=== PATIENT | male | born 1955 ===

== ENCOUNTER 2019-05-11 12:52 | Emergency (ER) | payer MEDICAID ==
[2019-05-11 13:06] VITALS: BP 146/79
[2019-05-11 14:02] LABS: ANION GAP 19.5; CHLORIDE,CL 95 mmol/L (101-111); SODIUM,NA 136 mmol/L (135-145)
[2019-05-11] MEDS ORDERED: Loratadine 10 MG Tab PO ONE (14:14)
[2019-05-11] MEDS ORDERED: Atropine/Diphenoxylate 0.025-2.5 MG Tab PO ONE (14:14)
--- NOTE | 2019-05-11 14:27 | EDM.PDOC ---
Scribed by Marlena Velazquez 05/11/19 9918 for Jermaine Gamez MD ED HPI GENERAL MEDICAL PROBLEM - General Chief Complaint: Respiratory Problem Stated Complaint: COLD,RUNNY NOSE Time Seen by Provider: 05/11/19 13:15 Source of Information: Reports: Patient, Old Records, RN, RN Notes Reviewed History Limitations: Reports: No Limitations - History of Present Illness INITIAL COMMENTS - FREE TEXT/NARRATIVE: Patient presents to ER with cough, sore throat, itching ears, fevers, and diarrhea that has gone on for 3 weeks. Patient states he has had generalized body aches for the past 2 or 3 days. He has been to clinic in [place] and has completed 10 days of Amoxicillin, and then 10 days of Doxycycline, but did not improve. He thinks the antibiotics only caused diarrhea. He denies chest pain, shortness of breath, increasing wt or edema. He states that he has not missed any dialysis. Onset: Gradual Duration: Week(s): (3), Getting Worse Location: Reports: Chest, Generalized Quality: Reports: Pressure (in sinuses), Other (denies pain) Severity: Moderate Improves with: Reports: None Worsens with: Reports: None Associated Symptoms: Reports: No Other Symptoms Treatments SURFACER: Reports: Acetaminophen, Other Medication(s) Other Treatments SURFACER: tylenol 500 mg po at 0900. Generalized Pain Score (Numeric/FACES): 7 - Related Data Allergies Allergy/AdvReac Type Severity Reaction Status Date / Time Penicillins AdvReac Rash Verified 09/05/18 20:48 Home Meds: Home Meds Acetaminophen 325 mg PO Q6H PRN 09/05/18 [History] Apixaban [Eliquis] 2.5 mg PO DAILY 09/05/18 [History] Aspirin [Halfprin] 81 mg PO DAILY 09/05/18 [History] Darbepoetin Chava [Aranesp] 25 mcg IJ WEEKLY 09/05/18 [History] Ethacrynic Acid 75 mg PO BID 09/05/18 [History] Insulin Lispro [Humalog] 45 unit SQ BID 09/05/18 [History] Insulin Lispro [Humalog] See Protocol SQ DAILY 09/05/18 [History] Isosorbide Mononitrate [Imdur] 60 mg PO DAILY 09/05/18 [History] Metoprolol Succinate [Toprol Xl] 200 mg PO BID 09/05/18 [History] Pregabalin [Lyrica] 75 mg PO BID 09/05/18 [History] amLODIPine [Norvasc] 10 mg PO DAILY 09/05/18 [History] atorvaSTATin [Lipitor] 20 mg PO BEDTIME 09/05/18 [History] hydrALAZINE [Apresoline] 20 mg PO TID 09/05/18 [History] Past Medical History - Past Health History Medical/Surgical History: Denies Medical/Surgical History HEENT History: Reports: Impaired Vision Cardiovascular History: Reports: None, High Cholesterol, Hypertension Respiratory History: Reports: Asthma Gastrointestinal History: Reports: None Other Gastrointestinal History: feeling gassy, like he has to belch and can't Genitourinary History: Reports: Dialysis, Other (See Below) (ESRD) Musculoskeletal History: Reports: None Neurological History: Reports: Neuropathy, Diabetic Psychiatric History: Reports: None Endocrine/Metabolic History: Reports: Diabetes, Type II Immunologic History: Reports: None Oncologic (Cancer) History: Reports: None Dermatologic History: Reports: None - Infectious Disease History Infectious Disease History: Reports: None - Past Surgical History Head Surgeries/Procedures: Reports: None HEENT Surgical History: Reports: None Respiratory Surgical History: Reports: None Social & Family History - Family History Family Medical History: Noncontributory - Tobacco Use Smoking Status *Q: Never Smoker Second Hand Smoke Exposure: No - Caffeine Use Caffeine Use: Reports: Coffee - Recreational Drug Use Recreational Drug Use: No - Living Situation & Occupation Living situation: Reports: with Family Occupation: Disabled ED ROS GENERAL - Review of Systems Review Of Systems: Comprehensive ROS is negative, except as noted in HPI. ED EXAM, GENERAL - Physical Exam Exam: See Below Exam Limited By: No Limitations General Appearance: Alert, No Apparent Distress, Other (Chronically ill appearing) Eye Exam: Bilateral Eye: Normal Inspection Ears: Normal External Exam, Normal Canal, Hearing Grossly Normal, Normal TMs Nose: No Blood, Nasal Drainage (Mild congestion with small amt. of clear nasal drainage) Throat/Mouth: Normal Inspection, Normal Lips, Normal Oropharynx, Normal Voice, No Airway Compromise Head: Atraumatic, Normocephalic Neck: Normal Inspection, Supple, Non-Tender, Full Range of Motion. No: Lymphadenopathy (L), Lymphadenopathy (R) Respiratory/Chest: No Respiratory Distress, No Accessory Muscle Use, Chest Non- Tender, Decreased Breath Sounds, Crackles, Wheezing (mild faint wheezes). No: Rales, Rhonchi, Stridor Cardiovascular: Regular Rate, Rhythm, No Edema GI/Abdominal: Normal Bowel Sounds, Soft, Non-Tender, No Distention, No Abnormal Bruit. No: Guarding, Rigid, Rebound Back Exam: Normal Inspection Extremities: Normal Inspection, Normal Range of Motion, Non-Tender, Normal Capillary Refill, No Pedal Edema Neurological: Alert, Oriented, No Motor/Sensory Deficits Psychiatric: Normal Mood Skin Exam: Warm, Dry, Intact, Normal Color, No Rash Course - Vital Signs Last Recorded V/S: Last Vital Signs Temp 97 F 05/11/19 13:02 Pulse Resp 18 05/11/19 13:02 BP 146/79 H 05/11/19 13:02 Pulse Ox 100 05/11/19 13:02 - Orders/Labs/Meds Orders: Active Orders 24 hr Category Date Time Status Chest 2V [CR] Stat Exams 05/11/19 13:28 Taken CULTURE STREP A CONFIRMATION [RM] Stat Lab 05/11/19 13:12 Results STREP SCRN A RAPID W CULT CONF [RM] Stat Lab 05/11/19 13:12 Results Labs: Laboratory Tests 05/11/19 05/11/19 Range/Units 13:38 13:38 WBC 14.1 H (5.0-10.0) 10^3/uL RBC 4.10 L (4.6-6.2) 10^6/uL Hgb 12.0 L (14.0-18.0) g/dL Hct 36.6 L (40.0-54.0) % MCV 89.3 D (80-100) fL MCH 29.3 (27.0-34.0) pg MCHC 32.8 L (33.0-35.0) g/dL Plt Count 169 D (150-450) 10^3/uL Neut % (Auto) 80.4 H (42.2-75.2) % Lymph % (Auto) 6.5 L (20.5-50.1) % [place] % (Auto) 8.1 H (2-8) % Eos % (Auto) 4.6 H (1.0-3.0) % Baso % (Auto) 0.4 (0.0-1.0) % Sodium 136 (135-145) mmol/L Potassium 3.5 L (3.6-5.0) mmol/L Chloride 95 L (101-111) mmol/L Carbon Dioxide 25.0 (21.0-31.0) mmol/L Anion Gap 19.5 BUN 41 H (7-18) mg/dL Creatinine 6.7 H D (0.6-1.3) mg/dL Est Cr Clr Drug Dosing 11.06 mL/min Estimated GFR (MDRD) 8 Glucose 130 H (74-105) mg/dL Calcium 9.0 (8.4-10.2) mg/dl B-Natriuretic Peptide > 5000 H (0-100) pg/ml Rapid strep: Negative. Influenza A and B: Negative. Meds: Medications Discontinued Medications Generic Name Dose Route Start Last Admin Trade Name Freq PRN Reason Stop Dose Admin Diphenoxylate HCl/Atropine 2 tab 05/11/19 14:14 Lomotil 0.025-2.5 Mg PO 05/11/19 14:15 ONETIME ONE Loratadine 10 mg 05/11/19 14:14 Claritin PO 05/11/19 14:15 ONETIME ONE - Radiology Interpretation Free Text/Narrative:: [facility] Final Radiology Report Call: [phone] assistance Online chat: [email or web address] Name: LEESA LAURENT Age: 63Years M Date: 05/11/2019 SSN: -- : [id number] Study: XR CHEST 2 VIEWS FRONTAL & LAT Requesting Physician: JERMAINE GAMEZ Images: 2 Addl Studies: Provided Clinical History: Contrast: Contrast Medium: Contrast Amount: Contrast Method: CONFIDENTIALITY STATEMENT This report is intended only for use by the referring physician, and only in accordance with law. If you received this in error, call [phone]. Page 1 of 1 PROCEDURE INFORMATION: Exam: XR Chest, 2 Views Exam date and time: 05/11/2019 1:33 PM Age: 63 years old Clinical indication: Cough TECHNIQUE: Imaging protocol: XR of the chest Views: 2 views. COMPARISON: CR Chest 2V 09/23/2013 7:38 PM FINDINGS: Lungs: The lungs appear clear. No pneumonia is identified. Pleural space: There is blunting of the left costophrenic angle, probably chronic. The right costophrenic angle is sharp. There is no pneumothorax. Heart/Mediastinum: The cardiac silhouette is enlarged but stable. The mediastinal and hilar contours are normal. The pulmonary vessels are normal. Bones/joints: No acute osseous pathology is identified. IMPRESSION: Cardiomegaly. No acute CHF or pneumonia appreciated. Thank you for allowing us to participate in the care of your patient. Dictated and Authenticated by: Lolis Franco MD 05/11/2019 2:08 PM Central Time ([place] & [place]) - Re-Assessments/Exams Free Text/Narrative Re-Assessment/Exam: 05/11/19 14:21 Pt was asked to provide a stool specimen to r/o C-diff. colitis as a possible source for his diarrhea since he has recently completed 2 courses of antibiotics , but pt did not wish to wait to provide a specimen. Departure - Departure Time of Disposition: 14:23 Disposition: Home, Self-Care 01 Condition: Good Clinical Impression: Viral upper respiratory tract infection Diarrhea Qualifiers: Diarrhea type: unspecified type Qualified Code(s): R19.7 - Diarrhea, unspecified - Discharge Information *PRESCRIPTION DRUG MONITORING PROGRAM REVIEWED*: Not Applicable *COPY OF PRESCRIPTION DRUG MONITORING REPORT IN PATIENT MADDIE: Not Applicable Instructions: Viral Respiratory Infection, [id number], Diarrhea, Adult, Probiotics Forms: ED Department Discharge Additional Instructions: Rx: Lomotil Rx: Loratadine 10mg May try an over the counter Probiotic to help with diarrhea. Follow up in clinic this week for recheck. Sepsis Event Note - Evaluation Sepsis Screening Result: No Definite Risk - Focused Exam Vital Signs: Vital Signs Temp Resp BP Pulse Ox 05/11/19 13:02 97 F 18 146/79 H 100 Date Exam was Performed: 05/11/19 Time Exam was Performed: 14:20 - My Orders Last 24 Hours: My Active Orders 05/11/19 13:12 CULTURE STREP A CONFIRMATION [RM] Stat STREP SCRN A RAPID W CULT CONF [RM] Stat 05/11/19 13:28 Chest 2V [CR] Stat - Assessment/Plan Last 24 Hours: My Active Orders 05/11/19 13:12 CULTURE STREP A CONFIRMATION [RM] Stat STREP SCRN A RAPID W CULT CONF [RM] Stat 05/11/19 13:28 Chest 2V [CR] Stat I have read and agree with the documentation that has been completed regarding this visit. By signing this record, I attest that the documentation was completed in my physical presence and is an accurate record of the encounter.
== END 2019-05-11 14:35 | disposition home or self-care (01) ==
LOC: DL.ED 12:52
DX: J06.9 Acute upper respiratory infection, unspecified (principal); R19.7 Diarrhea, unspecified; E11.40 Type 2 diabetes mellitus with diabetic neuropathy, unspecified; Z79.4 Long term (current) use of insulin; Z79.82 Long term (current) use of aspirin; Z79.899 Other long term (current) drug therapy; Z88.0 Allergy status to penicillin
CPT/HCPCS: 36415; 71046; 80048; 83880; 85025; 87081; 87430; 87804; 99283; A9270

== ENCOUNTER 2019-06-09 19:42 | Emergency (ER) | payer OTHER, MEDICAID ==
[2019-06-09 19:55] VITALS: PULSE 74
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
[2019-06-09 20:31] LABS: ANION GAP 26.1; CHLORIDE,CL 90 mmol/L (101-111); SODIUM,NA 130 mmol/L (135-145)
[2019-06-09 20:34] LABS: ACETAMINOPHEN < 10.0 ug/mL
[2019-06-09 20:47] VITALS: BP 111/72
== END 2019-06-09 23:25 ==
LOC: DL.ED 19:42
DX: F10.229 Alcohol dependence with intoxication, unspecified (principal); I12.0 Hypertensive chronic kidney disease with stage 5 chronic kidney disease or end stage renal disease; N18.6 End stage renal disease; E11.22 Type 2 diabetes mellitus with diabetic chronic kidney disease; E11.40 Type 2 diabetes mellitus with diabetic neuropathy, unspecified; F17.210 Nicotine dependence, cigarettes, uncomplicated; Z99.2 Dependence on renal dialysis; Z88.0 Allergy status to penicillin; Z79.82 Long term (current) use of aspirin; Z79.899 Other long term (current) drug therapy; V47.5XXA Car driver injured in collision with fixed or stationary object in traffic accident, initial encounter; Y90.8 Blood alcohol level of 240 mg/100 ml or more
CPT/HCPCS: 36415; 70450; 72125; 80053; 80307; 82009; 82140; 83690; 83735; 85025; 99285-25